=== PATIENT | male | born 1955 | race Hispanic/Latino ===

== ENCOUNTER 2023-04-12 07:58 | Outpatient (RCR) | payer MEDICARE | END 2023-04-26 | LOC: PT 07:58 | PROVIDERS: ATTEND Physician Assistant | DX: M17.12 Unilateral primary osteoarthritis, left knee (principal) ==

== ENCOUNTER 2023-04-28 07:31 | Outpatient (RCR) | payer MEDICARE | END 2023-05-26 | LOC: PT 07:31 | PROVIDERS: ATTEND Physician Assistant | DX: M17.12 Unilateral primary osteoarthritis, left knee (principal) ==

== ENCOUNTER → 2023-12-26 | Outpatient (REF) | payer MEDICARE | LOC: RAD 14:09 | PROVIDERS: ATTEND Internal Medicine | DX: S43.401A Unspecified sprain of right shoulder joint, initial encounter (principal) ==

== ENCOUNTER → 2024-05-02 | Outpatient (REF) | payer MEDICARE | LOC: MAMMO 11:11 | PROVIDERS: ATTEND Internal Medicine | DX: N62 Hypertrophy of breast (principal) | CPT/HCPCS: 77066 ==